=== PATIENT | male | born 1965 | race Caucasian/White ===

== ENCOUNTER 2018-04-21 22:39 | Emergency (ER) | payer SELFPAY ==
[~2018-04-21] VITALS: Ht 190.5 cm; Wt 84.2 kg
--- NOTE | 2018-04-21 23:40 | NUR ---
PT ADMITTED TO HAVING A KNIFE IN HIS BAG. PT WAS AGREEABLE TO HAVING SECURITY HOLD PLACE THE KNIFE IN SAFE KEEPING DURING HIS STAY. SECURITY TO BEDSIDE. ONE FILET STYLE KNIFE STICKERED AND GIVEN TO SECURITY.
[2018-04-21] MEDS ORDERED: ONDANSETRON ODT 4 MG ONE (23:51)
[2018-04-21] MEDS ORDERED: LORazepam 1MG TABLET ONE (23:51)
--- NOTE | 2018-04-21 23:58 | NUR ---
PT ARGUMENTATIVE ABOUT EVERY TOPIC. PT DIFFICULT TO REDIRECT. CALMING MEASURES MILDLY SUCCESSFUL.
[2018-04-22] MEDS ORDERED: LORazepam 1MG TABLET PO ONE
[2018-04-22] MEDS ORDERED: ONDANSETRON ODT 4 MG PO ONE
[2018-04-22] MEDS ORDERED: LORazepam 2 MG/ML, 1ML IVPush ONE
[2018-04-22 00:01] LABS: BASOPHILS # (AUTO) 0.01 x10^3/uL (0-0.1); BASOPHILS % (AUTO) 0 % (0-1); EOSINOPHILS # (AUTO) 0.02 x10^3/uL (0-0.4); EOSINOPHILS % (AUTO) 1 % (1-7); LYMPHOCYTES # (AUTO) 1.41 x10^3/uL (1-3.4); LYMPHOCYTES % (AUTO) 48 % (22-44); MD NO; MEAN CORPUSCULAR HEMOGLOBIN 32.7 pg (27.5-34.5); MEAN CORPUSCULAR HGB CONC 34.4 g/dL (33.2-36.2); MEAN CORPUSCULAR VOLUME 94.8 fL (81-97); MEAN PLATELET VOLUME 6.7 fL (7.4-10.4); MONOCYTES # (AUTO) 0.38 x10^3/uL (0.2-0.8); MONOCYTES % (AUTO) 13 % (2-9); NEUTROPHILS # (AUTO) 1.13 x10^3/uL (1.8-6.8); NEUTROPHILS % (AUTO) 38 % (42-75); PLATELET COUNT 340 x10^3/uL (130-400); RED BLOOD COUNT 3.82 x10^6/uL (4.38-5.82); RED CELL DISTRIBUTION WIDTH 14.3 % (9.4-14.8)
[2018-04-22 00:09] LABS: ALANINE AMINOTRANSFERASE 67 U/L (12-78); ALBUMIN 3.2 g/dL (3.4-5.0); ANION GAP 8 mmol/L (5-15); CALCIUM 8.7 mg/dL (8.5-10.1); CHLORIDE 111 mmol/L (98-107); CREATININE 0.96 mg/dL (0.7-1.3)
[2018-04-22 00:11] LABS: ALKALINE PHOSPHATASE 121 U/L (45-117); BILIRUBIN,TOTAL 0.3 mg/dL (0.2-1.0); TOTAL PROTEIN 7.2 g/dL (6.4-8.2)
[2018-04-22] MEDS ORDERED: POTASSIUM CHLORIDE 20 MEQ TAB.ER.PRT PO ONE (00:30)
[2018-04-22] MEDS ORDERED: POTASSIUM CHLORIDE 20 MEQ TAB.ER.PRT ONE (00:31)
--- NOTE | 2018-04-22 00:38 | NUR ---
PT AWOKEN. PT MEDICATED PER MAY. POC DISCUSSED. LIGHTS DIMMED FOR COMFORT. PT DENIES FURTHER NEEDS AT THIS TIME.
[2018-04-22 01:10] VITALS: BP 118/79
== END 2018-04-22 01:50 | disposition home or self-care (01) ==
LOC: ED 23:43
DX: R10.84 Generalized abdominal pain (principal); F10.220 Alcohol dependence with intoxication, uncomplicated; R05 Cough; Z88.0 Allergy status to penicillin
CPT/HCPCS: 36415; 71045; 80053; 80307; 83690; 83735; 85025; 99284; Q0162

== ENCOUNTER 2018-04-28 05:03 | Emergency (ER) | payer SELFPAY ==
[~2018-04-28] VITALS: Ht 193 cm; Wt 87.0 kg
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
[2018-04-28] MEDS ORDERED: MAALOX/HYOSCYAMINE/LIDOCAINE 45 ML BTL ONE (05:28)
[2018-04-28] MEDS ORDERED: FAMOTIDINE 20 MG/2 ML ONE (05:29)
[2018-04-28] MEDS ORDERED: MAALOX/HYOSCYAMINE/LIDOCAINE 45 ML BTL PO ONE (05:30)
[2018-04-28] MEDS ORDERED: FAMOTIDINE 20 MG/2 ML IVP ONE (05:30)
--- NOTE | 2018-04-28 05:32 | NUR ---
LAB IN ROOM
[2018-04-28 05:52] LABS: BASOPHILS # (AUTO) 0.01 x10^3/uL (0-0.1); BASOPHILS % (AUTO) 0 % (0-1); EOSINOPHILS # (AUTO) 0.01 x10^3/uL (0-0.4); EOSINOPHILS % (AUTO) 0 % (1-7); LYMPHOCYTES # (AUTO) 1.25 x10^3/uL (1-3.4); LYMPHOCYTES % (AUTO) 33 % (22-44); MD NO; MEAN CORPUSCULAR HEMOGLOBIN 32.7 pg (27.5-34.5); MEAN CORPUSCULAR VOLUME 96.3 fL (81-97); MEAN PLATELET VOLUME 6.2 fL (7.4-10.4); MONOCYTES # (AUTO) 0.43 x10^3/uL (0.2-0.8); MONOCYTES % (AUTO) 11 % (2-9); NEUTROPHILS # (AUTO) 2.13 x10^3/uL (1.8-6.8); NEUTROPHILS % (AUTO) 56 % (42-75); PLATELET COUNT 583 x10^3/uL (130-400); RED BLOOD COUNT 4.26 x10^6/uL (4.38-5.82); RED CELL DISTRIBUTION WIDTH 14.8 % (9.4-14.8)
--- NOTE | 2018-04-28 05:54 | NUR ---
PT RESTING IN ROOM. NO ACUTE DISTRESS NOTED. RUBBER TURNER ON. SINSU TACH NOTED. CALL LIGHT IN PLACE. WILL CONTINUE TO MONITOR.
[2018-04-28 05:59] LABS: ALBUMIN 3.8 g/dL (3.4-5.0); ANION GAP 10 mmol/L (5-15); CHLORIDE 107 mmol/L (98-107)
[2018-04-28 06:05] LABS: ALANINE AMINOTRANSFERASE 46 U/L (12-78); ALKALINE PHOSPHATASE 92 U/L (45-117); BILIRUBIN,TOTAL 0.4 mg/dL (0.2-1.0); CREATININE 0.71 mg/dL (0.7-1.3); TOTAL PROTEIN 8.2 g/dL (6.4-8.2); TROPONIN I < 0.015 ng/mL (0.000-0.045)
--- NOTE | 2018-04-28 06:30 | NUR ---
PT SMELLS OF ETOH AND DROWSY. PT IS NOT READY FOR DISCHARGE. DR LEHMAN AWARE. DATA SYSTEMS MANAGER NSR NOTED. WILL CONTINUE TO MONITOR.
--- NOTE | 2018-04-28 06:55 | NUR ---
BEDSIDE REPORT GIVEN TO CECIL HUSSEIN
--- NOTE | 2018-04-28 07:04 | NUR ---
Recieved bedside report from CECIL Madsen. All questions answered. NADN. Pt asleep on gurney. Pt connected to all monitors. All safety preacutions in place. No needs expressed at this time. Pt to MTF. Call light within reach.
--- NOTE | 2018-04-28 08:02 | NUR ---
Pt sleeping on gurney connected to all monitors. NADN. No needs expressed at this time. All safety measures in place. Call light within reach. MTF at this time.
--- NOTE | 2018-04-28 08:27 | NUR ---
dock operator walked with pt down keane. Pt states, "I still feel a little wobbly." Pt back to room. NADN. No needs expressed.
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
--- NOTE | 2018-04-28 08:53 | NUR ---
Patient given discharge instructions and they have confirmed that they understand the instructions. Patient ambulatory with steady gait. Pt left with all personal belongings, discharge paperwork, community resource information, and taxi voucher.
[2018-04-28 08:54] VITALS: BP 112/67
== END 2018-04-28 08:56 | disposition home or self-care (01) ==
LOC: ED 06:12
DX: F10.221 Alcohol dependence with intoxication delirium (principal); R10.84 Generalized abdominal pain
CPT/HCPCS: 36415; 80053; 80307; 83690; 84484; 85025; 93005; 96374; 99284; J3490

== ENCOUNTER 2018-05-03 16:14 | Emergency (ER) | payer SELFPAY ==
[2018-05-03 16:17] VITALS: BP 145/90
--- NOTE | 2018-05-03 16:21 | NUR ---
PT IS ON GURNEY IN HIS CLOTHES. HE IS REFUSING TO TALK TO THIS RN, REFUSING TO TAKE CLOTHES OFF, AND REFUSING VITALS. BACKPACK IS LABELED WITH JACKET AND GIVEN TO SECURITY THERE IS A KNIFE IN THE BAG. PT RESTING IN BED, RESPS EVEN AND UNLABORED.
--- NOTE | 2018-05-03 16:49 | NUR ---
SECURITY BACK WITH BAG. INVENTORY OF BACKPACK FINDS A FILLET KNIFE AND A BOX OF RAZOR BLADES. WARM BLANKETS WERE PROVIDED TO PT AND CLINICAL SCREEN WAS ATTEMPTED. PTS [id number] WAS TO TELL THIS RN "SHUT THE FUCK UP ASSHOLE."
--- NOTE | 2018-05-03 17:24 | NUR ---
PT STILL REFUSING ALL ASSESSMENT QUESTIONS.
--- NOTE | 2018-05-03 17:39 | NUR ---
PT RESTING IN BED. RESPS EVEN AND UNLABORED. Addendum: 05/03/18 at 1757 by ALLAN NOTE MADE BY JULIA JACOB
--- NOTE | 2018-05-03 18:45 | NUR ---
PT REPORT FROM EVELIN JACOB. THIS RN TO ASSUME CARE OF PT. PT STILL REFUSING ALL ASSESSMENTS AND VITALS. AWARE. NADN. RESTING COMFORTABLY ON GURNEY.
--- NOTE | 2018-05-03 20:16 | NUR ---
PT AMB W/ STEADY GAIT AT THIS TIME. TBDC.
--- NOTE | 2018-05-03 20:19 | NUR ---
PT INFORMED OF BELONGINGS IN SECURITY.
== END 2018-05-03 20:18 | disposition home or self-care (01) ==
LOC: ED 16:24
DX: F10.220 Alcohol dependence with intoxication, uncomplicated (principal)
CPT/HCPCS: 99283

== ENCOUNTER 2018-09-15 06:51 | Emergency (ER) | payer MEDICAID ==
[~2018-09-15] VITALS: Ht 193 cm; Wt 85.6 kg
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
[2018-09-15] MEDS ORDERED: GABA300C10 PO (08:23)
[2018-09-15] MEDS ORDERED: KETOROLAC 30 MG/1 ML IM ONE (08:30)
[2018-09-15] MEDS ORDERED: METHOCARBAMOL 750 MG TABLET PO ONE (08:30)
[2018-09-15] MEDS ORDERED: METHOCARBAMOL 750 MG TABLET ONE (08:33)
[2018-09-15] MEDS ORDERED: KETOROLAC 60 MG/2 ML ONE (08:33)
--- NOTE | 2018-09-15 09:02 | NUR ---
PT MEDICATED PER MAR.
[2018-09-15 09:27] VITALS: BP 128/75
--- NOTE | 2018-09-15 09:28 | NUR ---
Patient/Caregiver given discharge instructions and they have confirmed that they understand the instructions. Patient ambulatory with steady gait.
== END 2018-09-15 09:30 | disposition home or self-care (01) ==
LOC: ED 09:24
DX: S39.012A Strain of muscle, fascia and tendon of lower back, initial encounter (principal); S60.222A Contusion of left hand, initial encounter; S60.221A Contusion of right hand, initial encounter; R51 Headache; Y04.8XXA Assault by other bodily force, initial encounter; Y93.89 Activity, other specified; Y92.009 Unspecified place in unspecified non-institutional (private) residence as the place of occurrence of the external cause; Y99.8 Other external cause status
CPT/HCPCS: 70450; 72110; 73130; 96372; 99284; J1885

== ENCOUNTER 2019-02-14 05:33 | Emergency (ER) | payer MEDICAID ==
[~2019-02-14] VITALS: Ht 193 cm; Wt 80.5 kg
[~2019-02-14 05:33] MED LIST: GABA300C10 PO
--- NOTE | 2019-02-14 05:42 | NUR ---
PT IN RESTROOM WHEN CALLED FOR TRIAGE.
--- NOTE | 2019-02-14 05:54 | NUR ---
PT STATES HE HAS BEEN DRINKING FOR 10 DAYS STRAIGHT. "I'M DT'N, I'M SEEING THINGS, I'M HURTIN PRETTY BAD AND I NEED TO GET HELP". LAST DRINK YESTERDAY, ALSO STATED " I VE BEEN SOBER FOR 2.5 YEARS. MONITORS APPLIED, SIDERAILS UP X2, CALL LIGHT WITHIN REACH
[2019-02-14] MEDS ORDERED: TRAZ-137 PO (05:56)
[2019-02-14] MEDS ORDERED: SODIUM CHLORIDE FLUSH 10ML SYR IVF ONE (06:00)
[2019-02-14] MEDS ORDERED: LORazepam 2 MG/ML, 1ML IVPush ONE ×2 (06:00→09:30)
[2019-02-14] MEDS ORDERED: FAMOTIDINE 20 MG/2 ML IV ONE (06:00)
[2019-02-14] MEDS ORDERED: ONDANSETRON 2MG/ML, 2ML IVPush ONE (06:00)
[2019-02-14] MEDS ORDERED: FAMOTIDINE 20 MG/2 ML ONE (06:04)
[2019-02-14] MEDS ORDERED: ONDANSETRON 2MG/ML, 2ML ONE (06:04)
[2019-02-14] MEDS ORDERED: LORazepam 2 MG/ML, 1ML ONE ×2 (06:04→09:01)
--- NOTE | 2019-02-14 06:15 | NUR ---
IV SITE STARTED, LABS DRAWN, PT MEDICATED PER MAR
--- NOTE | 2019-02-14 06:33 | NUR ---
URINE SAMPLE TAKEN TO LAB
[2019-02-14 06:43] LABS: BASOPHILS # (AUTO) 0.02 x10^3/uL (0-0.1); BASOPHILS % (AUTO) 0 % (0-1); EOSINOPHILS # (AUTO) 0.08 x10^3/uL (0-0.4); EOSINOPHILS % (AUTO) 1 % (1-7); LYMPHOCYTES # (AUTO) 1.04 x10^3/uL (1-3.4); LYMPHOCYTES % (AUTO) 15 % (22-44); MD NO; MEAN CORPUSCULAR HEMOGLOBIN 33.5 pg (27.5-34.5); MEAN CORPUSCULAR HGB CONC 33.4 g/dL (33.2-36.2); MEAN CORPUSCULAR VOLUME 100.3 fL (81-97); MEAN PLATELET VOLUME 6.8 fL (7.4-10.4); MONOCYTES # (AUTO) 0.28 x10^3/uL (0.2-0.8); MONOCYTES % (AUTO) 4 % (2-9); NEUTROPHILS # (AUTO) 5.71 x10^3/uL (1.8-6.8); NEUTROPHILS % (AUTO) 80 % (42-75); PLATELET COUNT 235 x10^3/uL (130-400); RED BLOOD COUNT 3.99 x10^6/uL (4.38-5.82); RED CELL DISTRIBUTION WIDTH 13.7 % (9.4-14.8)
--- NOTE | 2019-02-14 06:49 | NUR ---
REPORT GIVEN TO CECIL LYON
[2019-02-14 06:52] LABS: ANION GAP 6 mmol/L (5-15); CALCIUM 8.5 mg/dL (8.5-10.1); CHLORIDE 111 mmol/L (98-107); CREATININE 0.95 mg/dL (0.7-1.3)
--- NOTE | 2019-02-14 06:52 | NUR ---
RECEIVED REPORT FROM BETHANY. PT SLEEPING CALMLY ON GURNEY, NAD WITH EQUAL CHEST RISE/FALL, NO NEEDS AT THIS TIME, CALL LIGHT WITHIN REACH.
[2019-02-14 06:53] LABS: ALANINE AMINOTRANSFERASE 34 U/L (12-78); ALBUMIN 3.8 g/dL (3.4-5.0)
[2019-02-14 06:55] LABS: ALKALINE PHOSPHATASE 92 U/L (45-117); BILIRUBIN,TOTAL 0.7 mg/dL (0.2-1.0); TOTAL PROTEIN 7.8 g/dL (6.4-8.2)
[2019-02-14 07:22] LABS: MICROSCOPIC AUTO
[2019-02-14 07:25] LABS: CULTURE INDICATED? NO
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
[2019-02-14 08:57] VITALS: BP 145/86
--- NOTE | 2019-02-14 08:58 | NUR ---
PT REMAINS UPRIGHT ON GURNEY AWAKE & C/O "FEEL TERRIBLE"- ERP AWARE, RESPONDS APPROP TO STAFF, COMFORT MEASURES PROVIDED, CALL LIGHT WITHIN REACH.
--- NOTE | 2019-02-14 09:06 | NUR ---
PT MEDICATED FOR ANIETY PER EMAR Addendum: 02/14/19 at 0930 by DELPHINE PT MEDICATED FOR ANXIETY PER EMAR
--- NOTE | 2019-02-14 09:29 | NUR ---
Patient given discharge instructions and they have confirmed that they understand the instructions. Patient ambulatory with steady gait.
== END 2019-02-14 09:31 | disposition home or self-care (01) ==
LOC: ED 06:30
DX: F10.239 Alcohol dependence with withdrawal, unspecified (principal); R45.4 Irritability and anger; R44.3 Hallucinations, unspecified; Y90.9 Presence of alcohol in blood, level not specified
CPT/HCPCS: 36415; 80053; 83690; 85025; 93005; 96374; 96375; 96376; 99284; J2060; J2405; J3490

== ENCOUNTER 2020-06-20 15:30 | Emergency (ER) | payer MEDICAID ==
[~2020-06-20] VITALS: Ht 193 cm; Wt 91.0 kg
[~2020-06-20 15:30] MED LIST changes: +TRAZ-175 PO
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
--- NOTE | 2020-06-20 17:08 | NUR ---
PT SITTING ON EDGE OF BED AGAIN. RN ENCOURAGED PT TO LAY BACK IN BED. TV TURNED ON SO PT CAN HAVE DISTRACTION. CHART UP FOR RECHECK.
--- NOTE | 2020-06-20 17:51 | NUR ---
PT FOUND UP IN CHAIR IN ROOM. WALKED BACK TO BED, PT WOBBLY, BEGINNING TO LEAN BACK INTO RN. RN TOLD PT TO STAND UP AND CORRECT. HOB TO POSITION OF COMFORT WITH KNEES ELEVATED. PT AWARE OF PLAN TO DC ONCE HE IS ABLE TO WALK STEADILY. ERMD IN TO ASSESS PT AND DISCUSSED DC WITH PT.
--- NOTE | 2020-06-20 18:01 | NUR ---
PT CALLED IN RN TO DISCUSS PLANS TO PLAY POOL AFTER DC. NAD NOTED AT THIS TIME.
--- NOTE | 2020-06-20 18:38 | NUR ---
PT ASLEEP IN BED, NAD NOTED AT THIS TIME. RESPIRATIONS EVEN AND UNLABORED ON RA. SIDE RAILS UP, CALL LIGHT IN REACH.
--- NOTE | 2020-06-20 19:10 | NUR ---
REPORT TO CECIL ABDULLAHI.
[2020-06-20 21:13] VITALS: BP 136/84
--- NOTE | 2020-06-20 21:14 | NUR ---
PT RESTING IN BED, PT WAS FED A TURKEY SANDWICH WITH CHIPS AND WATER. PT SAID HE WAS FELLING BETTER. PT A/O X4 WITH UNLABORED RESP.
== END 2020-06-20 21:34 | disposition home or self-care (01) ==
LOC: ED 21:00
DX: S00.03XA Contusion of scalp, initial encounter (principal); S50.02XA Contusion of left elbow, initial encounter; S09.90XA Unspecified injury of head, initial encounter; M54.2 Cervicalgia; F10.220 Alcohol dependence with intoxication, uncomplicated; F17.210 Nicotine dependence, cigarettes, uncomplicated; K21.9 Gastro-esophageal reflux disease without esophagitis; Y90.0 Blood alcohol level of less than 20 mg/100 ml; W01.0XXA Fall on same level from slipping, tripping and stumbling without subsequent striking against object, initial encounter; Y93.89 Activity, other specified; Y92.410 Unspecified street and highway as the place of occurrence of the external cause; Y99.8 Other external cause status
CPT/HCPCS: 70450; 72125; 99285; 99406

== ENCOUNTER 2020-08-04 17:50 | Emergency (ER) | payer MEDICAID ==
[~2020-08-04] VITALS: Ht 190.5 cm; Wt 80.0 kg
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
[2020-08-04] MEDS ORDERED: LIDOCAINE 2%, 10ML INFIL ONE (18:30)
--- NOTE | 2020-08-04 18:39 | NUR ---
PT REFUSING TO STAY IN BED. PT SMELLS OF ETOH. DR OCONNELL TO BEDSIDE. SECURITY TO BEDSIDE. PT USED URINAL IN BED. PT IS NOT STEADY ON FEET. PT HELPED BACK TO BED. PT AGREES TO STAY IN THE BED. CALL LIGHT TEACHING DONE. VS STABE. WILL CONTINUE TO MONITOR.
--- NOTE | 2020-08-04 18:56 | NUR ---
report given to CECIL Mccarthy
[2020-08-04] MEDS ORDERED: LIDOCAINE-MPF 1%, 5ML ONE (19:11)
--- NOTE | 2020-08-04 19:21 | NUR ---
Wounds cleansed and irrigated by YUE Ren. Suture materials/lido at bedside.
--- NOTE | 2020-08-04 19:55 | NUR ---
PT RESTING IN ROOM. VS STABLE. NO ACUTE DISTRESS NOTED. WILL CONTINUE TO MONITOR.
--- NOTE | 2020-08-04 21:00 | NUR ---
PA STUDENT IN ROOM DOING SUTURES
--- NOTE | 2020-08-04 22:02 | NUR ---
WOUND CARE DONE. VS STABLE. NO ACUTE DISTRESS NOTED. PT IS NOT ABLE TO SAFELY AMBULATE AT THIS TIME. CALL LIGHT IN PLACE. WILL CONTINUE TO MONITOR.
--- NOTE | 2020-08-04 23:26 | NUR ---
PT IS NOT ABLE TO SAFELY AMBULATE AROUND ROOM. VS STABLE. CALL LIGHT IN PLACE. WILL CONTINUE TO MONITOR.
--- NOTE | 2020-08-05 01:10 | NUR ---
PT IS NOT STEADY ON FEET. PT IS A&O X4. VS STABLE. DR OCONNELL AWARE. CALL LIGHT IN PLACE. WILL CONTINUE TO MONITOR.
--- NOTE | 2020-08-05 01:56 | NUR ---
REPORT GIVEN TO CECIL REYNOLDS
--- NOTE | 2020-08-05 02:27 | NUR ---
BEDSIDE REPORT RECEIVED FROM RODOLFO JACOB
--- NOTE | 2020-08-05 02:27 | NUR ---
REPORT GIVEN TO CECIL GARCIA.
[2020-08-05 02:31] VITALS: BP 116/88
--- NOTE | 2020-08-05 02:31 | NUR ---
PT SITTING UPRIGHT ON GURORTIZ, NADN, VSS. NO NEEDS AT THIS TIME. CALL LIGHT AND BELONGINGS WITHIN REACH. WILL CONTINUE TO MONITOR.
--- NOTE | 2020-08-05 04:10 | NUR ---
PT INCREASINGLY AGITATED WHEN WOKEN FROM SLEEP. "IM NOT FUCKING LEAVING THIS PLACE, NOT UNTIL ITS LIGHT OUT. THIS PLACE IS A FUCKING JOKE". PT NOT COOPERATIVE WITH STAFF, CONTINUALLY YELLING IN DEPARTMENT "I CAN'T BELIEVE THIS FUCKING PLACE. I SHOULD TRACY ALL OF YOU CORRUPT PIECES OF SHIT". PT RAPIDLY EXITED BED AND AMBULATED WITH STEADY GAIT WHILE ATTEMPTING TO REMOVE HIS PIV AND MONITORING EQUIPMENT. SECURITY CALLED AND AT BEDSIDE DUE TO PT HOSTILE AND AGGRESIVE BEHAVIOR TOWARDS STAFF.
--- NOTE | 2020-08-05 04:13 | NUR ---
PT AMBULATORY WITH STEADY GAIT OUT OF ED WITH SECURITY CONTINUALLY YELLING "FUCK THIS PLACE, CAN'T FUCKING BELIEVE YOU ARE GONNA MAKE ME LEAVE AND NOT LET ME SLEEP UNTIL THE SUN IS SHINING".
== END 2020-08-05 04:16 | disposition home or self-care (01) ==
LOC: ED 21:03
DX: S06.0X1A Concussion with loss of consciousness of 30 minutes or less, initial encounter (principal); S01.81XA Laceration without foreign body of other part of head, initial encounter; S01.21XA Laceration without foreign body of nose, initial encounter; G31.2 Degeneration of nervous system due to alcohol; K21.9 Gastro-esophageal reflux disease without esophagitis; X58.XXXA Exposure to other specified factors, initial encounter; Y93.89 Activity, other specified; Y92.89 Other specified places as the place of occurrence of the external cause; Y99.8 Other external cause status
CPT/HCPCS: 12052; 70450; 70486; 71045; 72125; 99285

== ENCOUNTER 2020-10-04 00:50 | Emergency (ER) | payer MEDICAID ==
[~2020-10-04] VITALS: Ht 193 cm; Wt 81.0 kg
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
--- NOTE | 2020-10-04 02:04 | NUR ---
TASK RN: RETURNED FROM CT. NAD NOTED. C-COLLAR REMAINS IN PLACE. LAB IN TO DRAW
--- NOTE | 2020-10-04 02:58 | NUR ---
wctmpt attached to card/sp02/bp monitors. vss. nadn. bed in low position. rails engaged. call light on lap. breathing even and unlabored. pt still appears intoxicated. crane chaser at bedside for wound cleansing. wctm
[2020-10-04] MEDS ORDERED: DIPH,PERTUSS(ACELL),TET VAC/PF 0.5 ML IM-VACC ONE ×2 (03:00→06:12)
[2020-10-04] MEDS ORDERED: LIDOCAINE-MPF 1%, 5ML INFIL ONE (03:30)
[2020-10-04] MEDS ORDERED: LIDOCAINE-MPF 1%, 5ML ONE (03:47)
[2020-10-04] MEDS ORDERED: NEOSPORIN OINT. PKT 1 PACKET ONE (03:47)
--- NOTE | 2020-10-04 03:59 | NUR ---
Patient is sleeping comfortably in bed. eyes closed. Bed in lowest, rails engaged, call light on lap. Vital Signs within normal limits. WCTM.
--- NOTE | 2020-10-04 04:51 | NUR ---
Patient is sleeping comfortably in bed. eyes closed. Bed in lowest, rails engaged, call light on lap. Vital Signs within normal limits. WCTM.
[2020-10-04 05:57] VITALS: BP 133/94
--- NOTE | 2020-10-04 06:26 | NUR ---
DISH STACKER: PT SCREAMING AND YELLING AT STAFF, "HOW THE FUCK DO I GET OUT OF HERE". THREATENED TO "BEAT ALL OF YOU". PT GAIT STEADY OUT THE AMBULANCE BAY WITH BELONGING. SECURITY CALLED
--- NOTE | 2020-10-04 06:26 | NUR ---
PT WALKED TO THE BATHROOM WITH STEADY GAIT. WALKED BACK TO HIS ROOM WITH STEADY GAIT AND GRABBED HIS BACKPACK AND BEGAN TO SCREAM AT STAFF AND YELLING WHERE THE EXIT IS. PT YELLED AT STAFF AND MD STATING "FUCK OFF AND FUCK YOU" TO EVERYONE. PT POINTED TO THE EXIT AND PT LEFT THE PREMISES.
== END 2020-10-04 06:29 | disposition left against medical advice (07) ==
LOC: ED 01:00
DX: S01.112A Laceration without foreign body of left eyelid and periocular area, initial encounter (principal); S09.90XA Unspecified injury of head, initial encounter; M47.812 Spondylosis without myelopathy or radiculopathy, cervical region; F10.120 Alcohol abuse with intoxication, uncomplicated; F17.210 Nicotine dependence, cigarettes, uncomplicated; Z59.0 Homelessness; Z72.9 Problem related to lifestyle, unspecified; K21.9 Gastro-esophageal reflux disease without esophagitis; W18.30XA Fall on same level, unspecified, initial encounter; Y93.89 Activity, other specified; Y92.89 Other specified places as the place of occurrence of the external cause; Y99.8 Other external cause status; Y90.0 Blood alcohol level of less than 20 mg/100 ml
CPT/HCPCS: 12051; 36415; 70450; 72125; 80320; 90471; 90715; 99285; 99406; G0480